=== PATIENT | female | born 1965 | race Caucasian/White ===

== ENCOUNTER → 2023-07-09 13:29 | Outpatient (REF) | payer SELFPAY | LOC: HWRAD 13:29 | PROVIDERS: ATTENDING PHYSICIAN Internal Medicine | DX: M81.0 Age-related osteoporosis without current pathological fracture (principal) | CPT/HCPCS: 77080 ==

== ENCOUNTER → 2023-07-11 16:59 | Outpatient (REF) | payer SELFPAY | LOC: HWWDC 16:59 | PROVIDERS: ATTENDING PHYSICIAN Internal Medicine | DX: Z12.31 Encounter for screening mammogram for malignant neoplasm of breast (principal) | CPT/HCPCS: 77063; 77067 ==